=== PATIENT | female | born 1995 | race Caucasian/White ===

== ENCOUNTER 2020-05-23 11:43 | Emergency (ER) | payer OTHER ==
[~2020-05-23] VITALS: Ht 162.6 cm; Wt 72.6 kg
== END 2020-05-23 16:10 | disposition home or self-care (01) ==
LOC: ER 11:43
DX: S61.221A Laceration with foreign body of left index finger without damage to nail, initial encounter (principal); W26.0XXA Contact with knife, initial encounter; Y93.89 Activity, other specified; Y92.89 Other specified places as the place of occurrence of the external cause; Y99.8 Other external cause status

== ENCOUNTER 2021-04-29 08:38 | Outpatient (CLI) | payer OTHER | END 2021-04-29 08:51 | disposition home or self-care (01) | LOC: SONOGRAMA 08:38 | PROVIDERS: ATTEND Internal Medicine Gastroenterology | DX: R10.13 Epigastric pain (principal) ==

== ENCOUNTER 2021-07-19 07:36 | Outpatient (CLI) | payer OTHER | END 2021-07-19 07:39 | disposition home or self-care (01) | LOC: TOM 07:36 | PROVIDERS: ATTEND Internal Medicine | DX: K86.89 Other specified diseases of pancreas (principal) ==

== ENCOUNTER 2024-07-16 14:24 | Outpatient (CLI) | payer OTHER ==
[2024-07-16 16:04] LABS: CREATININE SERUM 0.97 mg/dL (0.55-1.02)
== END 2024-07-16 14:25 | disposition home or self-care (01) ==
LOC: LAB 14:24
PROVIDERS: ATTEND Radiology Diagnostic Radiology
DX: D35.4 Benign neoplasm of pineal gland (principal)

== ENCOUNTER 2024-07-18 07:19 | Outpatient (CLI) | payer OTHER | END 2024-07-18 07:28 | disposition home or self-care (01) | LOC: MRI 07:19 | PROVIDERS: ATTEND Psychiatry & Neurology Neurology | DX: D35.4 Benign neoplasm of pineal gland (principal); M79.2 Neuralgia and neuritis, unspecified; G44.309 Post-traumatic headache, unspecified, not intractable | CPT/HCPCS: 70553 ==